=== PATIENT | female | born 1995 | race Caucasian/White ===

== ENCOUNTER 2021-11-16 20:36 | Emergency (ER) | payer SELFPAY ==
[~2021-11-16] VITALS: Ht 165.1 cm; Wt 95.5 kg
[2021-11-16 20:45] VITALS: TEMP 97.6
[2021-11-16 21:27] LABS: BASO # 0.1 K/mm3 (0.0-0.2); BASO % 1.4 % (0.0-2.0); EOS # 0.2 K/mm3 (0.0-0.7); EOS % 1.9 % (0.0-4.0); GRAN # 5.9 K/mm3 (1.4-6.5); GRAN % 61.8 % (42.2-75.2); HEMATOCRIT 42.7 % (37.0-47.0); HEMOGLOBIN 13.8 g/dl (12.5-16.0); LYMPH # 2.5 K/mm3 (1.2-3.4); MEAN CELL VOLUME 90 fl (80.0-100.0); MEAN CORPUSCULAR HEMOGLOBIN 29 pg (27-31); MEAN CORPUSCULAR HGB CONC 32 g/dl (33.0-37.0); MEAN PLATELET VOLUME 9.9 fl (7.4-10.4); MONO # 0.8 K/mm3 (0.1-0.6); MONO % 8.2 % (1.7-9.3); PLATELET COUNT 296 K/mm3 (130-400); RED BLOOD COUNT 4.73 M/mm3 (4.10-5.30); REDCELL DISTRIBUTION WIDTH-CV 12.7 % (11.5-14.5)
[2021-11-16 21:45] LABS: ALANINE AMINOTRANSFERASE 17 U/L (0-55); ALBUMIN 3.8 gm/dL (3.5-5.0); ALKALINE PHOSPHATASE 100 U/L (40-150); ANION GAP 7 mmol/L (7-16); AST,SGOT 12 U/L (5-34); BILIRUBIN,TOTAL 1.5 mg/dL (0.2-1.2); BLOOD UREA NITROGEN 16 mg/dL (7-19); CALCIUM 9.2 mg/dL (8.4-10.2); CARBON DIOXIDE 26 mmol/L (22-29); CHLORIDE 107 mmol/L (98-107); CREATININE, serum 0.71 mg/dL (0.57-1.11); GLUCOSE 81 mg/dL (70-99); LIPASE 31 U/L (8-78); POTASSIUM 4.1 mmol/L (3.5-4.5); SODIUM 140 mmol/L (136-145); TOTAL PROTEIN 7.2 gm/dL (6.2-8.1)
[2021-11-16 21:53] LABS: TROPONIN-I < 0.010 ng/mL (0.00-0.033)
[2021-11-16 22:31] VITALS: BP 145/88; PULSE 92
== END 2021-11-16 22:31 | disposition home or self-care (01) ==
LOC: COL.ER 20:36
PROVIDERS: Nurse Practitioner Primary Care
DX: R07.2 Precordial pain (principal)

== ENCOUNTER 2021-12-01 03:16 | Emergency (ER) | payer BC ==
[~2021-12-01] VITALS: Ht 165.1 cm; Wt 95.5 kg
[2021-12-01 03:23] VITALS: TEMP 97.2
[2021-12-01 03:53] VITALS: BP 125/68; PULSE 88
== END 2021-12-01 03:53 | disposition home or self-care (01) ==
LOC: COL.ER 03:16
DX: M62.830 Muscle spasm of back (principal); Z28.310 Unvaccinated for COVID-19

== ENCOUNTER 2021-12-22 07:24 | Emergency (ER) | payer BC ==
[~2021-12-22] VITALS: Ht 165.1 cm; Wt 100.0 kg
[2021-12-22 07:34] VITALS: TEMP 98.2
[2021-12-22 08:52] VITALS: BP 142/84; PULSE 97
== END 2021-12-22 08:52 | disposition home or self-care (01) ==
LOC: COL.ER 07:24
DX: S81.012A Laceration without foreign body, left knee, initial encounter (principal); Z28.310 Unvaccinated for COVID-19; W10.8XXA Fall (on) (from) other stairs and steps, initial encounter